=== PATIENT | male | born 1960 | race Two or more races ===

== ENCOUNTER 2022-03-13 07:16 | Inpatient (IN) | payer OTHER ==
[~2022-03-13] VITALS: Ht 182.9 cm; Wt 81.6 kg
[2022-03-13] MEDS ORDERED: IPRATROPIUM NEB FS 0.5 MG/2.5 ML AMPUL.NEB NEB ONE (08:00)
[2022-03-13] MEDS ORDERED: IV NS 0.9% 1,000 ML BAG IV ONE (08:00)
[2022-03-13] MEDS ORDERED: ALBUTEROL FS 2.5 MG/3 ML VIAL.NEB NEB ONE (08:00)
[2022-03-13] MEDS ORDERED: methylPREDNISolone SOD SUCC 125 MG/2ML VIAL IV ONE (08:00)
--- NOTE | 2022-03-13 08:00 | NUR ---
IN ED VIA RESCUE WITH REPORT OF SOB, REPORTS RECURRENT PNEUMONIA AND HIGH RISK FOR INFECTION. HX OF COPD AND SLEEP APNEA AND STATED QUIT TOBACCO 20 YRS AGO.PLACED ON MONITOR AND MAINTAINED SAFE ENVIRONMENT. PER CM SR AND SAT 100% ON 3 L VIA N/C
[2022-03-13 08:30] LABS: BASOPHILS # (AUTO) 0.1 K/uL (0.0-0.2); BASOPHILS % (AUTO) 0.6 % (0.0-2.0); CALCIUM, SERUM 9.4 mg/dL (8.5-10.1); CARBON DIOXIDE 35 mmol/L (21-32); CHLORIDE 102 mmol/L (98-107); CREATININE 1.5 mg/dL (0.6-1.3); EOSINOPHILS % (AUTO) 4.1 % (0.0-6.0); GLUCOSE 108 mg/dL (74-106); HEMATOCRIT 38 % (39-51); HEMOGLOBIN 12.3 g/dL (13.5-17.5); LYMPHOCYTES # (AUTO) 0.9 K/uL (0.8-4.8); LYMPHOCYTES % (AUTO) 9.5 % (20.0-44.0); MEAN CORPUSCULAR HGB CONC 33 g/dl (31.0-36.0); MEAN CORPUSCULAR VOLUME 86 fL (80-96); MONOCYTES % (AUTO) 10.7 % (2.0-12.0); NEUTROPHILS # (AUTO) 6.8 K/uL (1.8-8.9); NEUTROPHILS % (AUTO) 75.1 % (43.0-81.0); PLATELET COUNT (AUTO) 329 K/uL (150-450); POTASSIUM 4.5 mmol/L (3.5-5.1); RED BLOOD CELL COUNT(AUTO) 4.35 MIL/uL (4.5-6.0); SODIUM SERUM 139 mmol/L (136-145); UREA NITROGEN, BLOOD 30 mg/dL (7-18); WHITE BLOOD COUNT (AUTO) 9.1 K/uL (4.3-11.0)
[2022-03-13] MEDS ORDERED: LEVO150T PO (08:31)
[2022-03-13] MEDS ORDERED: ROSU5TAB13 PO (08:31)
[2022-03-13] MEDS ORDERED: AMLO-212 PO (08:31)
[2022-03-13] MEDS ORDERED: HYDR-4279 PO (08:31)
[2022-03-13] MEDS ORDERED: PROP20TA19 PO (08:31)
[2022-03-13] MEDS ORDERED: TRAZ-252 PO (08:31)
[2022-03-13] MEDS ORDERED: ALBU2.5V38 NEB (08:31)
[2022-03-13] MEDS ORDERED: HYDR25TA4 PO (08:31)
[2022-03-13] MEDS ORDERED: LAMO100T17 PO (08:31)
[2022-03-13] MEDS ORDERED: METO-357 PO (08:31)
[2022-03-13] MEDS ORDERED: methylPREDNISolone SOD SUCC 125 MG/2ML VIAL ONE (08:39)
[2022-03-13 08:42] LABS: ALANINE AMINOTRANSFERASE 65 U/L (12-78); ALBUMIN 3.5 g/dL (3.4-5.0); ALKALINE PHOSPHATASE 106 U/L (46-116); ASPARTATE AMINOTRANSFERASE 27 U/L (15-37); BILIRUBIN,DIRECT 0.1 mg/dL (0.0-0.2); BILIRUBIN,TOTAL 0.2 mg/dL (0.2-1.0); TOTAL PROTEIN, SERUM 7.2 g/dL (6.4-8.2)
[2022-03-13] MEDS ORDERED: ALBUTEROL FS 2.5 MG/3 ML VIAL.NEB ONE (08:51)
[2022-03-13] MEDS ORDERED: IPRATROPIUM NEB FS 0.5 MG/2.5 ML AMPUL.NEB ONE (08:51)
[2022-03-13] MEDS ORDERED: IOHEXOL-350 100 ML VIAL IV ONE (09:01)
--- NOTE | 2022-03-13 09:02 | NUR ---
LEFT DEPARTMENT FOR CHEST CT R/O PE.
--- NOTE | 2022-03-13 09:30 | NUR ---
BACK FROM CT, RESULTS NEG FOR PE
[2022-03-13] MEDS ORDERED: SENN-175 PO (10:31)
[2022-03-13] MEDS ORDERED: ESCI20TA PO (10:31)
[2022-03-13] MEDS ORDERED: OMEP40CA21 PO (10:31)
[2022-03-13] MEDS ORDERED: APIX5TAB PO (10:31)
[2022-03-13] MEDS ORDERED: FERR325T23 PO (10:31)
[2022-03-13 11:24] VITALS: BP 140/80
[2022-03-13] MEDS ORDERED: ACETAMINOPHEN 325 MG TABLET PO PRN (11:30)
[2022-03-13] MEDS ORDERED: ONDANSETRON HCL/PF 4 MG/2 ML VIAL IVP PRN (11:30)
[2022-03-13] MEDS ORDERED: ALBUTEROL FS 2.5 MG/0.5 ML VIAL.NEB NEB PRN ×2 (11:30)
[2022-03-13] MEDS ORDERED: ALBUTEROL FS 2.5 MG/3 ML VIAL.NEB NEB PRN (11:30)
[2022-03-13] MEDS ORDERED: MAG HYDROX/AL HYDROX/SIMETH 30 ML UDC PO PRN (11:30)
[2022-03-13] MEDS ORDERED: TRAZODONE 50 MG TABLET PO PRN (11:30)
[2022-03-13] MEDS ORDERED: IPRATROPIUM NEB FS 0.5 MG/2.5 ML AMPUL.NEB NEB PRN ×2 (11:30)
[2022-03-13] MEDS ORDERED: HYDROCODONE/APAP 5/325MG TABLET PO PRN (11:30)
[2022-03-13] MEDS ORDERED: MAGNESIUM HYDROXIDE 30 ML UDC PO PRN (11:30)
[2022-03-13] MEDS ORDERED: methylPREDNISolone SOD SUCC 40 MG/ML VIAL ONE (13:10)
[2022-03-13] MEDS ORDERED: HYDROCODONE/APAP 5/325MG TABLET ONE (14:51)
--- NOTE | 2022-03-13 14:54 | NUR ---
REPORTS MIGRAINE HEADACHE 8/10 LEFT SIDE OF HEAD, FROM LEFT EYE TO OCCIPITAL. ACHING AND THROBBING IN QUALITY. PATIENT TOOK IMITREX FROM HOME-GIVEN TO HIM BY SPOUSE
[2022-03-13] MEDS ORDERED: methylPREDNISolone SOD SUCC 125 MG/2ML VIAL IV SCH (15:00)
--- NOTE | 2022-03-13 15:30 | NUR ---
PATIENT'S ROOM ASSIGNED 112-2 AND REPORT GIVEN TO RN ASSUMING CARE MITCH AND DR. BENSON RESPONDED TO TEXT FOR PATIENT'S HOME MEDICATION TO BE STARTED AND NORCO CHANGED TO 10 MG/325 MG.
--- NOTE | 2022-03-13 15:30 | NUR ---
VERBALIZED SOME RELIEF, ADMITTED TO [facility] AND LEFT ED FOR ADMITTED BED
--- NOTE | 2022-03-13 15:30 | NUR ---
received report ER Nurse, patient is alert and oriented x3-4. patient stable vital signs. patient is on 3l nasal cannula tolerating at 95%. all safety measures in place. call light within reach, bed locked in lowest position. patient girlfriend at bedside.
[2022-03-13] MEDS ORDERED: SUMATRIPTAN SUCCINATE 25 MG TABLET PO PRN (16:00)
[2022-03-13] MEDS ORDERED: HYDROCODONE/APAP 10/325MG TABLET PO PRN (16:00)
--- NOTE | 2022-03-13 18:30 | NUR ---
patient left AMA. Dr. Hugo Michelle aware. patient could not wait till next morning to be transferred. wants to be transferred to [facility]. patient signed AMA paperwork. notified. 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
[2022-03-13] MEDS ORDERED: APIXABAN 5 MG TABLET PO SCH (21:00)
[2022-03-13] MEDS ORDERED: SENNOSIDES 8.6 MG TABLET PO SCH (22:00)
[2022-03-13] MEDS ORDERED: ATORVASTATIN 10 MG TABLET PO SCH (22:00)
[2022-03-14] MEDS ORDERED: PANTOPRAZOLE 40 MG TABLET.DR PO SCH (07:30)
[2022-03-14] MEDS ORDERED: LEVOTHYROXINE SODIUM 75 MCG TABLET PO SCH (07:30)
[2022-03-14] MEDS ORDERED: LamoTRIgine 100 MG TABLET PO SCH (09:00)
[2022-03-14] MEDS ORDERED: AMLODIPINE BESYLATE 5 MG TABLET PO SCH (09:00)
[2022-03-14] MEDS ORDERED: ESCITALOPRAM OXALATE (10 MG) 10 MG TABLET PO SCH (09:00)
[2022-03-14] MEDS ORDERED: FERROUS SULFATE (325 MG) 325 MG/TAB TABLET PO SCH (09:00)
[2022-03-14] MEDS ORDERED: METOPROLOL SUCCINATE 50 MG TAB.SR.24H PO SCH (09:00)
== END 2022-03-13 20:45 | disposition left against medical advice (07) | DRG 192 ==
LOC: ER 07:27 → TRANSITION 13:16 → TELE1 15:38
DX: J44.1 Chronic obstructive pulmonary disease with (acute) exacerbation (principal); E78.5 Hyperlipidemia, unspecified; E89.0 Postprocedural hypothyroidism; F41.9 Anxiety disorder, unspecified; I10 Essential (primary) hypertension; Z20.822 Contact with and (suspected) exposure to COVID-19; Z85.850 Personal history of malignant neoplasm of thyroid; Z86.711 Personal history of pulmonary embolism; Z87.891 Personal history of nicotine dependence; Z79.01 Long term (current) use of anticoagulants; Z87.01 Personal history of pneumonia (recurrent); N28.9 Disorder of kidney and ureter, unspecified
CPT/HCPCS: 36415; 71045-TC; 80048-TC; 80076-TC; 83880; 84484-TC; 85025-TC; 85378-TC; 85730-TC; 87081-TC; C9803; G0378; J2920; J2930; Q9967